=== PATIENT | female | born 1960 ===

== ENCOUNTER → 2024-01-09 17:51 | Outpatient (ROUT) | payer BC, SELFPAY ==
[2024-01-09 18:21] LABS: Alanine Aminotransferase 19 IU/L (<35); Aspartate Aminotransferase 22 IU/L (14-36)
== END ==
LOC: LAB 17:53
PROVIDERS: Family Provider Family Medicine; PCP Family Medicine; Visit Provider Internal Medicine
DX: M70.22 Olecranon bursitis, left elbow (principal); L03.114 Cellulitis of left upper limb
CPT/HCPCS: 84450; 84460